=== PATIENT | male | born 1950 | race Caucasian/White ===

== ENCOUNTER 2024-02-24 20:33 | Emergency (ER) | payer MEDICARE, OTHER ==
[2024-02-24] MEDS: Ondansetron 4 MG/2 ML SDV IVPUSH ONE (21:14)
[2024-02-24] MEDS: Alum Hydroxide/Mag Hydroxide 30 ML, Lidocaine 2% 15 ML PO ONE (21:14)
[2024-02-24] MEDS: Sodium Chloride 0.9% 1,000 ML IV SCH ×2 (21:15→22:16)
[2024-02-24 21:16] LABS: BLOOD UREA NITROGEN,BUN 19 mg/dL (7-18); BUN/CREATININE RATIO 17.3 (9-20); CALCIUM 9.8 mg/dL (8.6-10.2); CARBON DIOXIDE,CO2 32 mmol/L (21-32); CHLORIDE,CL 101 mmol/L (100-110); CREATININE 1.1 mg/dL (0.70-1.30); EST CRCL DRUG DOSING (CG) 61.59 mL/min; ESTIMATED GFR 72 mL/min (>60); GLUCOSE RANDOM 153 mg/dL (80-116); POTASSIUM,K 3.7 mmol/L (3.5-5.3); SODIUM,NA 143 mmol/L (135-145)
[2024-02-24 21:21] LABS: HEMATOCRIT 45.3 % (38.3-50.1); MEAN CORPUSCULAR HEMOGLOBIN 29.3 pg (27.0-33.3); MEAN CORPUSCULAR VOLUME 88.8 fL (80.8-98.7); MEAN PLATELET VOLUME 7.7 fL (6.7-11.0); PLATELET COUNT,PLT 237 x10(3)uL (117-477); RED BLOOD CELL COUNT 5.11 x10(6)uL (3.90-5.90); RED CELL DISTRIBUTION WIDTH 13.5 % (12.4-15.0); WHITE BLOOD CELL COUNT,WBC 12.4 x10-3/uL (3.2-10.1)
[2024-02-24 21:22] LABS: A/G RATIO 0.9; ALANINE AMINOTRANSFERASE,ALT 33 U/L (12-36); ALBUMIN 3.8 g/dL (3.2-4.6); ALKALINE PHOSPHATASE 79 IU/L (56-112); ASPARTATE AMNIOTRANSFERASE,AST 22 IU/L (5-25); BILIRUBIN TOTAL 0.6 mg/dL (0.1-1.3); PROTEIN TOTAL,TP 7.9 g/dL (6.0-8.0)
[2024-02-24 21:24] LABS: LIPASE 36 U/L (16-77); TROPONIN I 11.9 pg/mL (4.0-60.3)
[2024-02-24 21:26] LABS: C-REACTIVE PROTEIN < 0.50 mg/dL (<0.50)
[2024-02-24 21:52] LABS: LYMPHOCYTES PERCENT MAN 12 % (13-37); MONOCYTES PERCENT MAN 2 % (4-12); SEG NEUTROPHILS PERCENT MAN 86 % (46-82)
[2024-02-24] MEDS: Aluminum Hydroxide/Magnesium Hydroxide Susp 30 ML Cup PO ONE (22:06)
[2024-02-24] MEDS: Metoclopramide 10 MG/2 ML SDV IVPUSH ONE (22:06)
[2024-02-24] MEDS: diphenhydrAMINE 50 MG/ML SDV IVPUSH ONE (22:15)
[2024-02-24] MEDS: Ketorolac 30 MG/ML SDV IVPUSH ONE (23:17)
[2024-02-24] MEDS: LORazepam 2 MG/ML SDV IVPUSH ONE (23:18)
[2024-02-24] MEDS ORDERED: Iopamidol 755 Mg/ML 100 ML Bottle IV SCH (23:45)
[2024-02-24 23:54] LABS: BILIRUBIN,URINE NEGATIVE (NEGATIVE); GLUCOSE,URINE NORMAL (NORMAL); KETONES,URINE 50 mg/dL (NEGATIVE); LEUKOCYTE ESTERASE,URINE NEGATIVE (NEGATIVE); NITRITE,URINE NEGATIVE (NEGATIVE); OCCULT BLOOD,URINE TRACE (NEGATIVE); PROTEIN,URINE 30 mg/dL (NEGATIVE); UROBILINOGEN,URINE NORMAL (NEGATIVE)
[2024-02-24 23:59] LABS: APPEARANCE,URINE CLEAR (CLEAR); BACTERIA,URINE FEW (NS); COLOR,URINE YELLOW (YELLOW); FINE GRANULAR CASTS,URINE OCCASIONAL (NS); MUCUS,URINE MODERATE (NS); RBC,URINE 0-5 (0-5); SQUAMOUS EPITHELIAL CELLS,UR OCCASIONAL (NS,R,O); WBC,URINE 0-5 (0-5)
[2024-02-25] MEDS: Iopamidol 755 Mg/ML 200 ML Bottle IV ONE (00:33)
== END 2024-02-25 03:09 ==
LOC: FB.ED 20:33
DX: K56.2 Volvulus (principal); K44.9 Diaphragmatic hernia without obstruction or gangrene; R82.4 Acetonuria; E86.0 Dehydration; Z88.8 Allergy status to other drugs, medicaments and biological substances; Z79.82 Long term (current) use of aspirin; Z79.899 Other long term (current) drug therapy
CPT/HCPCS: 36415; 43752; 74018; 74177; 80053; 81001; 83690; 84484; 85025; 86140; 93005; 93010; 96361; 96374; 96375; 99285; 99285-25; A9270-GY; J1200; J1885; J2060; J2405; J2765; J7030; Q9967